=== PATIENT | male | born 1975 | race African-American/Black ===

== ENCOUNTER 2017-10-16 02:10 | Emergency (ER) | payer OTHER ==
[~2017-10-16] VITALS: Ht 177.8 cm; Wt 74.8 kg
[2017-10-16 02:27] LABS: BASOPHILS 0.8 % (0.0-2.0); EOSINOPHILS 1.8 % (0.0-3.0); HEMATOCRIT 40.7 % (42.0-52.0); HEMOGLOBIN 13.5 gm/dL (14.0-18.0); LYMPHOCYTES 48.1 % (24.0-44.0); MCH 27.9 pg (26.0-34.0); MCHC 33.2 g/dL (28.0-37.0); MCV 83.9 fL (80.0-100.0); MONOCYTES 5.9 % (1.0-8.0); PLATELET COUNT 195 thou/uL (150-400); POLYS 43.4 % (36.0-66.0); RBC 4.85 mil/uL (4.50-6.00); RDW 15.3 % (10.5-14.5)
[2017-10-16 02:36] LABS: CREATININE 1.5 mg/dL (0.7-1.3); POTASSIUM 3.9 mmol/L (3.5-5.1)
[2017-10-16] MEDS ORDERED: KEPPRA 500 MG500 M1 PO (02:46)
[2017-11-12] MEDS ORDERED: KEPPRA 500 MG500 M1 PO (18:43)
== END 2017-10-16 03:07 | disposition home or self-care (01) ==
LOC: ER 02:10
PROVIDERS: Emergency Medicine
DX: R56.9 Unspecified convulsions (principal); F17.210 Nicotine dependence, cigarettes, uncomplicated; F10.10 Alcohol abuse, uncomplicated

== ENCOUNTER 2018-08-14 07:14 | Emergency (ER) | payer OTHER ==
[~2018-08-14] VITALS: Ht 175.3 cm; Wt 99.8 kg
[~2018-08-14 07:14] MED LIST: KEPPRA 500 MG500 M1 PO
[2018-08-14 07:45] LABS: ABSOLUTE NEUTROPHILS 3.3 thou/uL (1.4-8.2); BASOPHILS 0.7 % (0.0-2.0); EOSINOPHILS 1.6 % (0.0-3.0); HEMATOCRIT 41.3 % (42.0-52.0); HEMOGLOBIN 13.7 gm/dL (14.0-18.0); LYMPHOCYTES 34.4 % (24.0-44.0); MCH 28.2 pg (26.0-34.0); MCHC 33.2 g/dL (28.0-37.0); MCV 84.8 fL (80.0-100.0); MONOCYTES 6.1 % (1.0-8.0); PLATELET COUNT 154 thou/uL (150-400); POLYS 57.2 % (36.0-66.0); RBC 4.87 mil/uL (4.50-6.00); RDW 16.1 % (10.5-14.5); WBC 5.8 thou/uL (4.0-11.0)
[2018-08-14 07:56] LABS: CALCIUM 9.1 mg/dL (8.5-10.1); CREATININE 1.5 mg/dL (0.7-1.3); POTASSIUM 4.2 mmol/L (3.5-5.1)
[2018-08-14 08:21] LABS: URINE CLARITY CLEAR; URINE COLOR YELLOW; URINE GLUCOSE-RANDOM* NEGATIVE (Negative); URINE KETONES NEGATIVE (Negative); URINE PROTEIN (DIPSTICK) 1+ (Negative); URINE SPECIFIC GRAVITY >= 1.030 (1.005-1.035)
[2018-08-14 08:22] LABS: URINE BILIRUBIN NEGATIVE (Negative); URINE BLOOD TRACE (Negative); URINE LEUKOCYTES-REFLEX NEGATIVE (Negative); URINE NITRITE-REFLEX NEGATIVE (Negative); URINE UROBILINOGEN 0.2 E.U./dl (0.2-1.0)
[2018-08-14 08:25] LABS: AMP/METHAMP Negative (Negative); BARBITURATES Negative (Negative); BENZODIAZEPINES Negative (Negative); COCAINE Negative (Negative); METHADONE Negative (Negative); OPIATES Negative (Negative); PCP Negative (Negative)
[2018-08-14 08:32] LABS: FINE GRANULAR CASTS 0-3 Few /LPF (None Seen); HYALINE CASTS 0-3 Few /LPF (None Seen)
[2018-08-14 08:33] LABS: BACTERIA-REFLEX 1-9 Few /HPF (None Seen); SQUAMOUS None Seen /LPF (0-3); URINE RBC 0-2 Rare /HPF (0-2); URINE WBC-REFLEX 0-5 Rare /HPF (0-5)
[2018-08-14] MEDS ORDERED: KEPPRA 500 MG500 M1 PO (09:57)
[2018-08-14 10:15] VITALS: BP 140/76
== END 2018-08-14 10:16 | disposition home or self-care (01) ==
LOC: ER 07:14
PROVIDERS: Student in an Organized Health Care Education/Training Program
DX: R56.9 Unspecified convulsions (principal); F17.210 Nicotine dependence, cigarettes, uncomplicated